=== PATIENT | female | born 1940 | race Hispanic/Latino ===

== ENCOUNTER 2021-01-28 18:01 | Emergency (ER) | payer SELFPAY ==
[2021-01-28 19:09] LABS: Absolute Lymphocytes (CBC) 1.5 K/uL (0.7-4.9); Basophils % 0.5 % (0-1.3); Hematocrit 36.3 % (36.0-45.0); Lymphocytes % 11.7 % (15.3-44.8); MPV 8.9 fL (7.6-11.3); RBC Red Blood Cell Count 4.11 M/uL (3.86-4.86)
[2021-01-28] MEDS ORDERED: DICYCLOMINE HCL 10 MG CAP ONE (19:10)
[2021-01-28] MEDS ORDERED: ONDANSETRON 4 MG/2 ML VIAL ONE (19:10)
[2021-01-28 19:14] LABS: Albumin 4.2 g/dL (3.4-5.0); Bilirubin Direct 0.1 mg/dL (0-0.2); Bilirubin Total 0.4 mg/dL (0.2-1.0); Potassium 4.2 mmol/L (3.5-5.1); Protein, Total 7.6 g/dL (6.4-8.2)
--- NOTE | 2021-01-28 19:22 | RAD REPORT ---
EXAM DESCRIPTION: CT - Abdomen Pelvis W Contrast - 01/28/2021 7:04 pm CLINICAL HISTORY: Abdominal pain COMPARISON: none. TECHNIQUE: Computed axial tomography of the abdomen pelvis was obtained. 100 cc Isovue-300 was admin istered intravenously. Oral contrast was not requested which limits evaluation of bowel. All CT scans are performed using dose optimization technique as appropriate and may include automated exposure control or mA/KV adjustment according to patient size. FINDINGS: 21 millimeters cyst liver. Spleen, pancreas, adrenal and kidneys appear unremarkable. There is no evidence of diverticulitis. Normal appendix The wall of the distal stomach appears mildly thickened. The wall of the transverse colon appears mildly. IMPRESSION: The wall of the distal stomach and transverse colon appear mildly thickened. Both may si mply be secondary to incomplete distention. Inflammation can also result in these appearances.
[2021-01-28 19:29] LABS: Urine Blood NEGATIVE (NEG); Urine Glucose NEGATIVE (NEG); Urine Protein NEGATIVE (NEG)
[2021-01-28 20:40] LABS: Urine Bacteria 20-50 /HPF (<20); Urine Mucus 3+ /HPF (NONE SEEN); Urine RBC <5 /HPF (NONE SEEN)
--- NOTE | 2021-01-28 20:49 | ER ---
Nurse's Notes [facility] Name: Ruby Desai Age: 80 yrs Sex: Female : 1940 Arrival Date: 01/28/2021 Time: 18:05 Bed 23 Private MD: Diagnosis: Infectious gastroenteritis and colitis, unspecified Presentation: 01/28 18:26 Chief complaint: Patient states: "I am having stomach pain that started earlier today jd3 for about 30-45 min now. vomiting X 2.". Coronavirus screen: At this time, the client does not indicate any symptoms associated with coronavirus-19. Ebola Screen: Patient negative for fever greater than or equal to 101.5 degrees Fahrenheit, and additional compatible Ebola Virus Disease symptoms. Initial Sepsis Screen: Does the patient meet any 2 criteria? No. Patient's initial sepsis screen is negative. Does the patient have a suspected source of infection? No. Patient's initial sepsis screen is negative. Risk Assessment: Do you want to hurt yourself or someone else? Patient reports no desire to harm self or others. Onset of symptoms was January 28, 2021. 18:26 Method Of Arrival: Ambulatory jd3 18:26 Acuity: MACY 3 jd3 Historical: - Allergies: 18:28 PENICILLINS; jd3 18:28 diclofenac sodium; jd3 - Home Meds: 18:28 losartan oral oral [Active]; amlodipine oral [Active]; Metformin Oral [Active]; jd3 - PMHx: 18:28 Hypertension; Diabetes - NIDDM; jd3 - Immunization history:: Adult Immunizations up to date. - Social history:: Smoking status: Patient denies any tobacco usage or history of. Screenin:35 Abuse screen: Denies threats or abuse. Denies injuries from another. Nutritional zb screening: No deficits noted. Tuberculosis screening: No symptoms or risk factors identified. Fall Risk None identified. Assessment: 18:24 Reassessment: ECP at bedside w/ mobile seat covers trimmer. General: Appears in no apparent zb distress. uncomfortable, Behavior is calm, cooperative, appropriate for age, Reports feeling ill for 12-24 hours, Denies fever, fatigue, chills. Pain: Complains of pain in suprapubic area Pain does not radiate. Pain currently is 2 out of 10 on a pain scale. Quality of pain is described as aching, tender, Pain began suddenly, today Is intermittent, Noted to be grimacing, Also complains of nausea. Neuro: Level of Consciousness is awake, alert, obeys commands, Oriented to person, place, time, situation. Cardiovascular: Denies chest pain, fatigue, lightheadedness, shortness of breath, Capillary refill < 3 seconds Patient's skin is warm and dry. Respiratory: Airway is patent Respiratory effort is even, unlabored, Respiratory pattern is regular, symmetrical. GI: Abdomen is round non-distended, Bowel sounds present X 4 quads. Abdomen is tender to palpation in suprapubic area Reports diarrhea, nausea, vomiting, since 1 day. : No signs and/or symptoms were reported regarding the genitourinary system. EENT: No deficits noted. Derm: Skin is intact, is healthy with good turgor, Skin is dry, Skin is normal, Skin temperature is warm. Musculoskeletal: Range of motion: intact in all extremities. 19:45 Reassessment: Patient appears in no apparent distress at this time. Patient and/or zb family updated on plan of care and expected duration. Pain level reassessed. Patient is alert, oriented x 3, equal unlabored respirations, skin warm/dry/pink. patient had an episode of diarrhea. 20:24 Reassessment: Patient appears in no apparent distress at this time. Patient and/or zb family updated on plan of care and expected duration. Pain level reassessed. Patient is alert, oriented x 3, equal unlabored respirations, skin warm/dry/pink. spoke to patient family updated on care. no c/o from patient at this time. patient states she is doing fine. 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 zb 20:48 Reassessment: PO challenge complete no n/v at this point. zb 20:49 Reassessment: d/c pending completion of IV medications. zb 21:50 Reassessment: Patient appears in no apparent distress at this time. Patient and/or zb family updated on plan of care and expected duration. Pain level reassessed. Patient is alert, oriented x 3, equal unlabored respirations, skin warm/dry/pink. no changes at this time. 22:00 Reassessment: Patient appears in no apparent distress at this time. Patient and/or zb family updated on plan of care and expected duration. Pain level reassessed. Patient is alert, oriented x 3, equal unlabored respirations, skin warm/dry/pink. IV medication completed. d/c instructions given w/ seat covers trimmer. no questions at this time. Patient states feeling better. Vital Signs: 18:28 BP 118 / 50; Pulse 67; Resp 16 S; Temp 98.1(TE); Pulse Ox 99% on R/A; Pain 6/10; zb 19:45 BP 110 / 50; Pulse 65; Resp 16; Pulse Ox 100% on R/A; zb 20:26 BP 112 / 53; Pulse 58; Resp 16; Pulse Ox 97% on R/A; zb 21:00 BP 109 / 62; Pulse 58; Resp 15; Pulse Ox 96% on R/A; zb 22:01 BP 115 / 58; Pulse 57; Resp 16; Pulse Ox 100% on R/A; zb ED Course: 18:05 Patient arrived in ED. am2 18:11 Bladimir Toro PA is PHCP. cp 18:11 Deyvi Rock MD is Attending Physician. cp 18:27 Triage completed. jd3 18:29 Arm band placed on. jd3 18:32 Michelle Aguilar, RN is Primary Nurse. zb 18:35 Patient has correct armband on for positive identification. Bed in low position. Call zb light in reach. Side rails up X 1. Adult w/ patient. Pulse ox on. NIBP on. Door closed. Noise minimized. 18:45 Inserted saline lock: 20 gauge in right antecubital area, using aseptic technique. zb Blood collected. 20:14 Urine Microscopic Only Sent. zb 20:48 Chriss Hannah MD is Referral Physician. cp 21:02 No provider procedures requiring assistance completed. IV discontinued, intact, zb bleeding controlled, No redness/swelling at site. Pressure dressing applied. Administered Medications: 18:57 Drug: Zofran (Ondansetron) 4 mg Route: IVP; Site: right antecubital; zb 20:14 Follow up: Response: No adverse reaction; Marked relief of symptoms zb 18:57 Drug: Bentyl 20 mg Route: PO; zb 20:14 Follow up: Response: No adverse reaction zb 20:47 Drug: metroNIDAZOLE 500 mg Volume: 100 ml; Route: IVPB; Infused Over: 30 mins; Site: zb right antecubital; 22:00 Follow up: Response: No adverse reaction; IV Status: Completed infusion; IV Intake: zb 100ml 20:47 Drug: ProTONIX 40 mg Route: IVP; Site: right antecubital; zb 21:00 Follow up: Response: No adverse reaction zb 20:47 Drug: Ciprofloxacin 500 mg Route: PO; zb 21:00 Follow up: Response: No adverse reaction zb Intake: 22:00 IV: 100ml; Total: 100ml. zb Outcome: 20:48 Discharge ordered by MD. cp 22:05 Discharged to home ambulatory. zb 22:05 Condition: stable 22:05 Discharge instructions given to patient, Instructed on discharge instructions, follow up and referral plans. medication usage, Demonstrated understanding of instructions, follow-up care, medications, Prescriptions given X 4. 22:06 Patient left the ED. zb Signatures: Bladimir Toro PA PA cp Moreno, Amanda am2 Clayton Ortiz RN RN jd3 Michelle Aguilar RN RN zb Corrections: (The following items were deleted from the chart) 18:51 18:28 BP 118 / 50; Pulse 67bpm; Resp 16bpm; Spontaneous; Pulse Ox 99% RA; Temp 16F zb Temporal; Pain 6/10; jd3 18:51 18:24 Cardiovascular: Capillary refill < 3 seconds Patient's skin is warm and dry. zb zb 18:51 18:24 GI: Abdomen is round non-distended, Bowel sounds present X 4 quads. Abdomen is zb tender to palpation in suprapubic area zb 20:25 20:23 Reassessment: advised patient to reconsider having is blood draw. patient stated zb " why" patient educated it was to check for infection and to make sure his lab work was stable. patient still denied. notified ECP. zb 20:27 18:45 BP 110 / 50; Pulse 65bpm; Resp 16bpm; Pulse Ox 100% RA; zb zb 20:28 20:26 Pulse 58bpm; Resp 16bpm; Pulse Ox 97% RA; zb zb
--- NOTE | 2021-01-28 20:49 | EDPHYS ---
Physician Documentation [facility] Name: Ruby Desai Age: 80 yrs Sex: Female : 1940 Arrival Date: 01/28/2021 Time: 18:05 Bed 23 Private MD: ED Physician Deyvi Rock HPI: 01/28 18:45 This 80 yrs old Female presents to ER via Ambulatory with complaints of cp Abdominal Pain. 18:45 The patient presents with abdominal pain mid abdomen. Onset: The symptoms/episode cp began/occurred today. The symptoms do not radiate. Associated signs and symptoms: Pertinent positives: 2 episodes of vomiting and 1 episode of diarrhea, Pertinent negatives: blood in stools, chest pain, constipation, dysuria, fever. The symptoms are described as "grabbing". Severity of pain: in the emergency department the pain has improved mildly. Historical: - Allergies: 18:28 PENICILLINS; jd3 18:28 diclofenac sodium; jd3 - Home Meds: 18:28 losartan oral oral [Active]; amlodipine oral [Active]; Metformin Oral [Active]; jd3 - PMHx: 18:28 Hypertension; Diabetes - NIDDM; jd3 - Immunization history:: Adult Immunizations up to date. - Social history:: Smoking status: Patient denies any tobacco usage or history of. ROS: 18:50 Constitutional: Negative for body aches, chills, fever, poor PO intake. cp 18:50 Eyes: Negative for injury, pain, redness, and discharge. cp 18:50 ENT: Negative for ear pain, sore throat, difficulty swallowing, difficulty handling secretions. 18:50 Cardiovascular: Negative for chest pain, edema, palpitations. 18:50 Respiratory: Negative for cough, shortness of breath, wheezing. 18:50 Abdomen/GI: Positive for abdominal pain, nausea, vomiting, diarrhea, Negative for constipation, active vomiting. 18:50 Back: Negative for pain at rest, pain with movement. 18:50 Neuro: Negative for altered mental status, dizziness, headache, weakness. 18:50 All other systems are negative. Exam: 18:55 Constitutional: The patient appears in no acute distress, alert, awake, cp non-diaphoretic, non-toxic, well developed, well nourished. 18:55 Head/Face: Normocephalic, atraumatic. cp 18:55 Eyes: Periorbital structures: appear normal, Conjunctiva: normal, no exudate, no injection, Sclera: no appreciated abnormality, Lids and lashes: appear normal, bilaterally. 18:55 ENT: External ear(s): are unremarkable, Nose: is normal, Mouth: Lips: moist, Oral mucosa: moist, Posterior pharynx: Airway: no evidence of obstruction, patent. 18:55 Chest/axilla: Inspection: normal, Palpation: is normal, no crepitus, no tenderness. 18:55 Cardiovascular: Rate: normal, Rhythm: regular. 18:55 Respiratory: the patient does not display signs of respiratory distress, Respirations: normal, no use of accessory muscles, no retractions, labored breathing, is not present, Breath sounds: are clear throughout, no decreased breath sounds. 18:55 Abdomen/GI: Inspection: abdomen appears normal, Bowel sounds: active, all quadrants, Palpation: soft, in all quadrants, mild abdominal tenderness, in the mid abdomen, rebound tenderness, is not appreciated, voluntary guarding, is not appreciated, involuntary guarding, is not appreciated. 18:55 Back: pain, is absent, ROM is normal. Vital Signs: 18:28 BP 118 / 50; Pulse 67; Resp 16 S; Temp 98.1(TE); Pulse Ox 99% on R/A; Pain 6/10; zb 19:45 BP 110 / 50; Pulse 65; Resp 16; Pulse Ox 100% on R/A; zb 20:26 BP 112 / 53; Pulse 58; Resp 16; Pulse Ox 97% on R/A; zb 21:00 BP 109 / 62; Pulse 58; Resp 15; Pulse Ox 96% on R/A; zb 22:01 BP 115 / 58; Pulse 57; Resp 16; Pulse Ox 100% on R/A; zb MDM: 18:16 Patient medically screened. cp 19:00 Differential diagnosis: appendicitis, bowel obstruction, pancreatitis, Peptic Ulcer cp Disease, Perf. Duodenal Ulcer, Perf. Gastric Ulcer, Ureterolithiasis, urinary tract infection, colitis, gastroenteritis, diverticulitis. 20:48 Data reviewed: vital signs, nurses notes, lab test result(s), radiologic studies, CT cp scan. 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 Response to treatment: VSS. Pain improved. No vomiting observed while monitoring patient in ED. Patient appears non-toxic. Will discharge to home for continued monitoring. 01/28 18:32 Order name: Basic Metabolic Panel; Complete Time: 19:15 cp 01/28 19:15 Interpretation: Normal except: GLUC 148; BUN 26; CRE 1.36; GFR 38. cp 01/28 18:32 Order name: CBC with Diff 01/28 20:36 Interpretation: Normal except: WBC 13.10. 01/28 18:32 Order name: Hepatic Function; Complete Time: 19:15 cp 01/28 18:32 Order name: Lipase; Complete Time: 19:15 cp 01/28 19:21 Order name: Urine Dipstick--Ancillary (enter results) tt3 01/28 19:30 Order name: Urine Dipstick-Ancillary; Complete Time: 20:20 EDLA 01/28 19:01 Order name: CT Abd/Pelvis - IV Contrast Only 01/28 19:22 Order name: CT; Complete Time: 20:20 EDLA 01/28 20:40 Interpretation: Report reviewed. 01/28 19:46 Order name: Urine Microscopic Only zb 01/28 20:41 Order name: Urine Microscopic Only EDLA 01/28 21:21 Order name: CBC Smear Scan EDLA 01/28 18:32 Order name: IV Saline Lock; Complete Time: 18:50 01/28 18:32 Order name: Labs collected and sent; Complete Time: 18:50 cp 01/28 18:32 Order name: Urine Dipstick-Ancillary (obtain specimen); Complete Time: 20:14 cp 01/28 18:32 Order name: Urine Test (obtain specimen); Complete Time: 20:14 cp 01/28 20:36 Order name: PO challenge; Complete Time: 20:46 cp Administered Medications: 18:57 Drug: Zofran (Ondansetron) 4 mg Route: IVP; Site: right antecubital; zb 20:14 Follow up: Response: No adverse reaction; Marked relief of symptoms zb 18:57 Drug: Bentyl 20 mg Route: PO; zb 20:14 Follow up: Response: No adverse reaction zb 20:47 Drug: metroNIDAZOLE 500 mg Volume: 100 ml; Route: IVPB; Infused Over: 30 mins; Site: zb right antecubital; 22:00 Follow up: Response: No adverse reaction; IV Status: Completed infusion; IV Intake: zb 100ml 20:47 Drug: ProTONIX 40 mg Route: IVP; Site: right antecubital; zb 21:00 Follow up: Response: No adverse reaction zb 20:47 Drug: Ciprofloxacin 500 mg Route: PO; zb 21:00 Follow up: Response: No adverse reaction zb Disposition: 01/28/21 20:48 Discharged to Home. Impression: Infectious gastroenteritis and colitis, unspecified. - Condition is Stable. - Discharge Instructions: Colitis. - Prescriptions for Bentyl 20 mg Oral Tablet - take 1 tablet by ORAL route every 6 hours As needed; 20 tablet. Cipro 250 mg Oral Tablet - take 1 tablet by ORAL route every 12 hours for 10 days; 20 tablet. Zofran 4 mg Oral Tablet - take 1 tablet by ORAL route every 12 hours As needed; 20 tablet. Metronidazole 500 mg Oral Tablet - take 1 tablet by ORAL route every 8 hours; 30 tablet. Protonix 40 mg Oral Tablet - take 1 tablet by ORAL route once daily; 30 tablet. - Medication Reconciliation Form, Thank You Letter, Antibiotic Education, Prescription Opioid Use form. - Follow up: Chriss Hannah MD; When: 2 - 3 days; Reason: Recheck today's complaints. - Problem is new. - Symptoms have improved. Addendum: 01/30/2021 09:14 Co-signature as Attending Physician, Deyvi Rock MD I agree with the assessment and k dr plan of care. Signatures: Dispatcher [employer] [facility] Deyvi Rock MD MD [facility] Bladimir Toro PA PA cp Davies, Jonathon, RN RN Michelle Alcocer RN RN zb Corrections: (The following items were deleted from the chart) 01/28 18:36 18:32 Abdomen Pelvis W Con+CT.RAD.BRZ ordered. [facility] 22:06 20:48 01/28/2021 20:48 Discharged to Home. Impression: Infectious gastroenteritis and zb colitis, unspecified. Condition is Stable. Forms are Medication Reconciliation Form, Thank You Letter, Antibiotic Education, Prescription Opioid Use. Follow up: Chriss Hannah; When: 2 - 3 days; Reason: Recheck today's complaints. Problem is new. Symptoms have improved. cp
[2021-01-28] MEDS ORDERED: PANTOPRAZOLE 40 MG INJ ONE (20:54)
[2021-01-28] MEDS ORDERED: METRONIDAZOLE 500mg IVPB 500 MG/100 ML BAG IV ONE (20:54)
[2021-01-28] MEDS ORDERED: CIPROFLOXACIN HCL 500 MG TAB ONE (20:54)
[2021-01-28 21:21] LABS: Blood Morphology Comment NOT SEEN (NOT SEEN); Platelet Estimate ADEQ; White Blood Cell Scan OK (OK)
[2021-01-29 00:52] VITALS: TEMP 98.1
[2021-01-29 00:57] VITALS: BP 115/58; O2SAT 100
== END 2021-01-28 22:06 | disposition home or self-care (01) ==
LOC: ER 18:01
DX: A09 Infectious gastroenteritis and colitis, unspecified (principal); I10 Essential (primary) hypertension; E11.9 Type 2 diabetes mellitus without complications; Z88.0 Allergy status to penicillin; Z88.8 Allergy status to other drugs, medicaments and biological substances
CPT/HCPCS: 36415; 74177; 80048; 80076; 81003; 81015; 82565; 83690; 85025; 87086; 87088; 96365; 96375; 99284; C9113; J2405; Q9967